=== PATIENT | female | born 1995 | race Caucasian/White ===

== ENCOUNTER 2016-09-20 17:23 | Emergency (ER) | payer OTHER ==
[2016-09-20 17:30] VITALS: RESP 16
--- NOTE | 2016-09-20 17:39 | EDPHY ---
H & P Stated Complaint: Woke up 2 mornings ago w/L sided neck pain;sent to ED for eval ?meningitis Time Seen by Provider: 09/20/16 17:37 HPI/ROS: CHIEF COMPLAINT: Left posterior neck pain x2 days HISTORY OF PRESENT ILLNESS: The patient presents to the ED with a history of left posterior neck pain x2 days. The patient was seen at urgent care and sent to the ED for evaluation of possible meningitis. She denies any fever, cough, congestion, headache or recent infectious symptoms. The patient denies any numbness or weakness. The patient has not tried any NSAIDs for management of her symptoms. The patient denies additional acute complaints. She reports her symptoms are moderate in nature and worsened with axial movement of her head. REVIEW OF SYSTEMS: A comprehensive 10 point review of systems is otherwise negative aside from elements mentioned in the history of present illness. Source: Patient Exam Limitations: No limitations - Personal History LMP (Females 10-55): 1-7 Days Ago Current Tetanus Diphtheria and Acellular Pertussis (TDAP): Yes - Medical/Surgical History PMH: Past medical history: Noncontributory - Social History Smoking Status: Never smoked - Physical Exam Exam: General Appearance: Alert, no distress Eyes: Pupils equal and round no pallor or injection ENT, Mouth: Mucous membranes moist Neck: Tenderness to palpation along the left lateral paracervical muscles consistent with torticollis Respiratory: There are no retractions, lungs are clear to auscultation Cardiovascular: Regular rate and rhythm Gastrointestinal: Abdomen is soft and nontender, no masses, bowel sounds normal Neurological: A&O, normal motor function, normal sensory exam, normal cranial nerves Skin: Warm and dry, no rashes Musculoskeletal: Neck is supple nontender Extremities: symmetrical, full range of motion Constitutional: Initial Vital Signs Temperature (C) 36.9 C 09/20/16 17:27 Heart Rate 86 09/20/16 17:27 Respiratory Rate 16 09/20/16 17:27 Blood Pressure 133/82 H 09/20/16 17:27 O2 Sat (%) 97 09/20/16 17:27 Allergies/Adverse Reactions: No Known Allergies Allergy (Unverified 09/20/16 17:26) Home Medications: Medication Instructions Recorded Ibuprofen [Motrin (*)] 800 mg PO TID PRN #30 tab 09/20/16 Medical Decision Making ED Course/Re-evaluation: The patient presents to the ED with clinical evidence of torticollis and not meningitis. She is afebrile, she has pain with axial rotation and is neurologically intact. The patient did receive 600 mg of ibuprofen. At this point time I do feel the patient can be discharged home with a prescription for NSAIDs. She has been instructed to return to the ED should she develop fever, headache, worsening symptoms or other concerns. Differential Diagnosis: Differential diagnosis considered includes torticollis, meningitis, myofascial strain Departure - Departure Disposition: Home, Routine, Self-Care Clinical Impression: Torticollis, acute Condition: Good Instructions: Spasmodic Torticollis (ED) Additional Instructions: 1. Take Ibuprofen or Motrin 600 mg by mouth three times a day. 2. Please return to the ED for severe headache, fever, markedly worsening symptoms or other concerns. 3. Please follow up with a physician you have been referred to for any unimproved symptoms Referrals: Millie Pop MD [Medical Doctor] - As per Instructions
[2016-09-20] MEDS ORDERED: IBUPROFEN 600 MG TAB PO ONE (17:43)
[2016-09-20 18:45] VITALS: BP 102/68; PULSE 78; TEMP 99.7; O2SAT 98
== END 2016-09-20 18:45 | disposition home or self-care (01) ==
DX: M43.6 Torticollis (principal)